=== PATIENT | male | born 1970 | race Two or more races ===

== ENCOUNTER 2017-08-17 13:24 | Emergency (ER) | payer OTHER ==
[2017-08-17 13:36] VITALS: BP 154/99; PULSE 74; TEMP 98.8; BMI 25.9
--- NOTE | 2017-08-17 13:48 | PDOC ---
History of Present Illness <Pina Marr - Last Filed: 08/17/17 18:31> - General History Source: Patient (The patient is a 47 year old male, accompanied by ranjan, with a significant past medical history of schizophrenia, bipolar disorder, substance abuse (opiates and alcohol) who presents to the emergency department via walk-in, complaining of recent mood swings. The patient reports he recently changed his medication approx. 2 weeks ago from suboxone to a new medication (pt. is unsure of the name of the new medication) and reports feeling depressed, lethargic, and a recent loss of appetite. The patient states he recently visited [facility] on TuesdayAugust 12 (4 days ago) for a follow up visit for his new medications. He denies any suicidal or homicidal ideations. Social History: The patient reports 2-3 cigarettes per day , 2 beers per day, 2-3 marijuana joints per day and 1 percocet per day. The patient reports he is engaged to his fiancee and has 3 children and grandchildren. ), Significant Other Exam Limitations: No Limitations <Giancarlo Escamilla - Last Filed: 08/17/17 18:48> - General Chief Complaint: Psychiatric Stated Complaint: I HAVE BEEN CRYING ALL MORNING Time Seen by Provider: 08/17/17 13:32 Past History - Immunization History Immunization Up to Date: Yes Tetanus Status: Unknown - Social History Smoking History: No Smoking Status: Current every day smoker Number of Cigarettes Per Day: 3 Cigars Per Day: 0 Alcohol Use: occasionally Drug Use: marijuana <Pina Marr - Last Filed: 08/17/17 18:31> <Giancarlo Escamilla - Last Filed: 08/17/17 18:48> - Past Medical History Allergies/Adverse Reactions: Allergies Penicillins Adverse Reaction (Verified 08/17/17 13:52) Hives difficulty breathing Home Medications: Ambulatory Orders Amlodipine Besylate [Norvasc -] 10 mg PO DAILY 08/17/17 Aripiprazole [Abilify] 5 mg PO DAILY 08/17/17 Buprenorphine/Naloxone [Suboxone 8Mg/2Mg Sl Film -] 2 each SL TID 08/17/17 Gabapentin [Neurontin] 300 mg PO TID 08/17/17 Lurasidone HCl [Latuda] 20 mg PO DAILY 08/17/17 Oxycodone HCl/Acetaminophen [Percocet 10-325 mg Tablet] 1 each PO DAILY Paroxetine HCl [Paxil] 10 mg PO DAILY 08/17/17 *Review of Systems - Review of Systems Constitutional: Yes: Loss of Appetite. No: Chills, Diaphoresis, Fever, Weakness HEENTM: No: Eye Pain, Blurred Vision, Ear Pain, Difficulty Swallowing Respiratory: No: Cough, Shortness of Breath, Wheezing Cardiac (ROS): No: Chest Pain, Edema, Lightheadedness, Palpitations, Syncope ABD/GI: No: Abdominal Distended, Constipated, Diarrhea, Nausea, Vomiting : No: Burning, Dysuria, Discharge, Frequency, Hematuria Musculoskeletal: No: Back Pain, Joint Pain Integumentary: No: Erythema, Lesions, Rash Neurological: No: Headache, Numbness, Paresthesia Psychiatric: Yes: Depression, Frequent Crying, Mood Swings Endocrine: No: Intolerance to Cold, Intolerance to Heat, Unexplained Weight Gain , Unexplained Weight Loss Hematologic/Lymphatic: No: Anemia, Easy Bleeding, Easy Bruising <Giancarlo Escamilla - Last Filed: 08/17/17 18:48> *Physical Exam - Vital Signs Last Vital Signs Temp Pulse Resp BP Pulse Ox 98.8 F 74 16 154/99 98 08/17/17 13:30 08/17/17 13:30 08/17/17 13:30 08/17/17 13:30 08/17/17 13:30 <Pina Marr - Last Filed: 08/17/17 18:31> - Vital Signs Last Vital Signs Temp Pulse Resp BP Pulse Ox 98.8 F 74 16 154/99 98 08/17/17 13:30 08/17/17 13:30 08/17/17 13:30 08/17/17 13:30 08/17/17 13:30 - Physical Exam General Appearance: Yes: Appropriately Dressed, Other (Tearful ) HEENT: positive: EOMI, JANAE, Normal ENT Inspection, Normal Voice, Symmetrical, TMs Normal, Pharynx Normal Neck: positive: Trachea midline, Supple Respiratory/Chest: positive: Lungs Clear, Normal Breath Sounds. negative: Respiratory Distress, Accessory Muscle Use, Crackles, Rales, Rhonchi, Stridor, Wheezing Cardiovascular: positive: Regular Rhythm, Regular Rate, S1, S2. negative: Edema , JVD, Murmur Gastrointestinal/Abdominal: positive: Normal Bowel Sounds, Soft. negative: Guarding, Rebound, Tenderness Musculoskeletal: positive: Normal Inspection. negative: CVA Tenderness Extremity: positive: Normal Inspection, Normal Range of Motion. negative: Tender Integumentary: positive: Normal Color, Dry, Warm Neurologic: positive: chair caner II-XII NML intact, Fully Oriented, Alert, Normal Mood/ Affect, Normal Response, Motor Strength 5/5 <Giancarlo Escamilla - Last Filed: 08/17/17 18:48> Plan - Laboratory CBC & Chemistry Diagram: 08/17/17 13:52 08/17/17 13:52 <Pina Marr - Last Filed: 08/17/17 18:31> - Progress Note Progress Note: 08/17/17 18:47 Page sent to at 2:50 pm. Case discussed. Page sent to Iftikhar Douglas NP at 2:55 pm. Case discussed. Patient observed hour by hour. Iftikhar Douglas NP arrived to evaluate patient. - Order(s) Order(s): Orders Medication Instructions Recorded Amlodipine Besylate [Norvasc -] 10 mg PO DAILY 08/17/17 Aripiprazole [Abilify] 5 mg PO DAILY 08/17/17 Buprenorphine/Naloxone [Suboxone 2 each SL TID 08/17/17 8Mg/2Mg Sl Film -] Gabapentin [Neurontin] 300 mg PO TID 08/17/17 Lurasidone HCl [Latuda] 20 mg PO DAILY 08/17/17 Oxycodone HCl/Acetaminophen 1 each PO DAILY 08/17/17 [Percocet 10-325 mg Tablet] Paroxetine HCl [Paxil] 10 mg PO DAILY 08/17/17 - Laboratory CBC & Chemistry Diagram: 08/17/17 13:52 08/17/17 13:52 Lab/Micro Results: 08/17/17 08/17/17 13:52 13:52 Sodium 135 L Potassium 4.1 Chloride 105 Carbon Dioxide 24 Anion Gap 6 L BUN 8 Creatinine 0.7 Creat Clearance w eGFR > 60 Random Glucose 112 H Calcium 9.6 Total Bilirubin 0.5 AST 47 H ALT 61 H Alkaline Phosphatase 97 H Total Protein 8.0 Albumin 4.4 Alcohol, Quantitative < 5.0 L 08/17/17 13:52 RBC 5.02 MCV 96.3 H MCHC 34.5 RDW 12.6 MPV 8.3 Neutrophils % 61.9 Lymphocytes % 28.8 Monocytes % 6.5 Eosinophils % 2.2 Basophils % 0.6 <Giancarlo Escamilla - Last Filed: 08/17/17 18:48> *DC/Admit/Observation/Transfer - Discharge Dispostion Admit: No <Pina Marr - Last Filed: 08/17/17 18:31> - Attestations Scribe Attestion: 08/17/17 15:02 Documentation prepared by Giancarlo Escamilla, acting as medical physiologist for Pina Marr MD. <Giancarlo Escamilla - Last Filed: 08/17/17 18:48> Diagnosis at time of Disposition: Bipolar disorder with depression, Major depression, recurrent, chronic - Discharge Dispostion Disposition: HOME Condition at time of disposition: Improved - Patient Instructions Printed Discharge Instructions: Depression, Bipolar Disorder Additional Instructions: Follow up with your psychiatrist. Meanwhile follow the instructions of the local psychiatrist: Paxil 10mg /day go slowly up in few days up to 20 mg - Post Discharge Activity Forms/Work/School Notes: Back to Work
[2017-08-17 14:15] LABS: BASO % 0.6 % (0-2.0); EOS % 2.2 % (0-4.5); HEMATOCRIT 48.4 % (35.4-49); HEMOGLOBIN 16.7 GM/dl (11.7-16.9); LYMPH % 28.8 % (8-40); MCH 33.3 pg (25.7-33.7); MCHC 34.5 g/dl (32.0-35.9); MEAN CELL VOLUME 96.3 fl (80-96); MEAN PLT VOLUME 8.3 fl (7.5-11.1); MONO % 6.5 % (3.8-10.2); NEUT % 61.9 % (42.8-82.8); PLATELET COUNT 275 K/MM3 (134-434); RBC 5.02 M/mm3 (4.00-5.60); RDW 12.6 % (11.9-15.9)
[2017-08-17 14:27] LABS: ALBUMIN 4.4 g/dl (3.5-5.0); ALK PHOS 97 U/L (32-92); ANION GAP 6 (8-16); BILIRUBIN,TOTAL 0.5 mg/dl (0.2-1.0); BLOOD UREA NITROGEN 8 mg/dl (7-18); CALCIUM 9.6 mg/dl (8.4-10.2); CHLORIDE 105 mmol/L (98-107); CO2 24 mmol/L (22-28); GLUCOSE,RANDOM 112 mg/dl (74-106); POTASSIUM 4.1 mmol/L (3.5-5.1); SGOT/AST 47 U/L (10-42); SGPT/ALT 61 U/L (10-40); SODIUM 135 mmol/L (136-145)
[2017-08-17 14:37] LABS: CREATININE 0.7 mg/dl (0.6-1.3)
[2017-08-17 15:23] LABS: COCAINE, UR NEGATIVE ng/ml (CUTOFF=300); METHADONE, UR NEGATIVE ng/ml (CUTOFF=300); PHENCYCLIDINE,URINE NEGATIVE ng/ml (CUTOFF=25); URINE AMPHETAMINES NEGATIVE ng/ml (CUTOFF=500); URINE BARBITURATES NEGATIVE ng/ml (CUTOFF=200); URINE BENZODIAZEPINES NEGATIVE ng/ml (CUTOFF=200)
[2017-08-17 15:24] LABS: OPIATES, URI POSITIVE ng/ml (CUTOFF=300)
--- NOTE | 2017-08-17 17:32 | PN ---
Mental Health Exam - Mental Status Exam Alert and Oriented to: Time, Place, Person Cognitive Function: Good Patient Appearance: Unkempt (not shaven. ) Mood: Apathetic, Anxious, Apprehensive Affect: Mood Congruent Patient Behavior: Crying, Dependent, Cooperative Speech Pattern: Clear, Perseverating (heavily equadorian accented. ) Voice Loudness: Mildly Soft/Quiet Thought Process: Intact, Goal Oriented Thought Disorder: Not Present Hallucinations: Denies (heard a voice in the past but not recently. ) Suicidal Ideation: Denies, No Plan Homicidal Ideation: Denies, No Plan Insight/Judgement: Fair Sleep: Poorly (early childhood director wakening..) Appetite: Fair (no appetite today. ) Muscle strength/Tone: Normal Gait/Station: Normal
--- NOTE | 2017-08-17 17:47 | PN ---
Progress Note (short form) - Note Progress Note: Patient is [place] 47yo male who presents to [facility] at [facility] today in context of having a "nervous breakdown" this am. His girlfriend, Maryuri also accompanied him here today. Patient stopped taking his Antipsychotic mecication and medical meds over the weekend. Client is recently been seen at [facility] where he is managed over many years for depression/ anxiety, with Paxil 40 mg, klonopin which is now tapered off, Neurontin 300mg po tid. [facility], for his polysubstance use, where his meds regieme is changed. he has 1 detox in past, currently managed on out patient with suboxone. He was given latuda instead of abilify which he never took. Client has been on suboxone since starting at clinic, but does not like how he is feeling.Client endorseed smoking marjuanna daily, drinking 2-3 beers to sleep. Client lives with girlfriend and 3 children , 21yo, 18yo and 11 yo. Client is chronic marijuana user, with an arrest for same, facing ICE court case in March 2018, pending deportation. Client noted taking copious notes that help his thoughts, denies current Suicidal ideation, no plan, denies hearing voices, see MSE. Client is working [employer] in [place]. Raised liver enzymes alt 47, ast 61, alk 97. Problem List - Problems (1) Major depression, recurrent, chronic Assessment/Plan: client need to continue Paxil that has been helpful in the past. Currently at 10mg may titrate upwards to 20mg untill follow [facility] at [facility]. [facility]ointment [facility] august 25 2017. Client is extremely anxious since this am, related to poly substance use, recent withdrawal symptoms. Edgy, monitor for withdrawal and Vitals signs, if elevated withrawl and seizure precautions. He stated he cries, poor sleep suffer shakes with anxiety. restart neuronton 300mg po tid. hold latuda, restart tegretol. Code(s): F33.9 - MAJOR DEPRESSIVE DISORDER, RECURRENT, UNSPECIFIED
== END 2017-08-17 18:48 | disposition home or self-care (01) ==
LOC: FER 13:24
DX: F33.8 Other recurrent depressive disorders (principal); F20.9 Schizophrenia, unspecified; F31.9 Bipolar disorder, unspecified; F11.20 Opioid dependence, uncomplicated; F17.210 Nicotine dependence, cigarettes, uncomplicated; F12.10 Cannabis abuse, uncomplicated; Z88.0 Allergy status to penicillin
CPT/HCPCS: 36415; 80053; 80307; 85025; 99283-25

== ENCOUNTER 2018-02-05 11:49 | Emergency (ER) | payer OTHER ==
[2018-02-05 12:06] VITALS: BP 129/78; PULSE 88; TEMP 99.1; BMI 24.8
[2018-02-05] MEDS ORDERED: ERYTHROMYCIN 0.5% OPHTHALMIC OINTMENT 3.5 GM TUBE OD ONE (12:08)
--- NOTE | 2018-02-05 12:09 | PDOC ---
Attending Attestation - Resident Resident Name: HusseinAbelardo ellison - ED Attending Attestation I have performed the following: I have examined & evaluated the patient, The case was reviewed & discussed with the resident, I agree w/resident's findings & plan, Exceptions are as noted - HPI HPI: 47 yo M presents with 2 day history of swelling to R eyelid. +Itching. No drainage. No prior similar symptoms. - Physicial Exam PE: GENERAL: Awake, alert, and fully oriented, in no acute distress HEAD: No signs of trauma EYES: +R upper eyelid erythema, swelling, tenderness. +Small hordeolum PERRLA, EOMI, sclera anicteric, conjunctiva clear ENT: Auricles normal inspection, hearing grossly normal, nares patent, oropharynx clear without exudates. Moist mucosa NECK: Normal ROM, supple, no lymphadenopathy, JVD, or masses NEUROLOGICAL: Cranial nerves II through XII grossly intact. Normal speech, normal gait SKIN: Warm, Dry, normal turgor, no rashes or lesions noted. - Medical Decision Making Exam consistent with hordeolum. Warm compresses, erythromycin ointment.
[2018-02-05] MEDS ORDERED: ERYTHROMYCIN 0.5% OPHTHALMIC OINTMENT 3.5 GM TUBE ONE (12:11)
--- NOTE | 2018-02-05 12:20 | PDOC ---
History of Present Illness - General Chief Complaint: Eye Problem Stated Complaint: RIGHT EYE ITCHING AND SWOLLEN Time Seen by Provider: 02/05/18 12:08 History Source: Patient Exam Limitations: No Limitations - History of Present Illness Initial Comments: 02/05/18 12:15 Patient is a 47M with no significant medical history here today complaining of redness and swelling to his right eye for the past three days. Denies fevers, chills, nausea, vomiting. Endorses eye itching and blurry vision. Denies pain with light and eye movement. Past History - Past Medical History Allergies/Adverse Reactions: Allergies Allergy/AdvReac Type Severity Reaction Status Date / Time buprenorphine [From Suboxone] AdvReac Hives Verified 02/05/18 11:51 Penicillins AdvReac Hives Verified 02/05/18 11:51 Home Medications: Ambulatory Orders Aripiprazole [Abilify] 5 mg PO DAILY 08/17/17 Paroxetine HCl [Paxil] 10 mg PO DAILY 08/17/17 Erythromycin 0.5% Eye Ointment [Erythromycin 0.5% Eye Ointment -] 1 applic OD TID #1 tube 02/05/18 Anemia: No Asthma: No Cancer: No Cardiac Disorders: No CVA: No COPD: No Dementia: No Diabetes: No (boarderline) GI Disorders: No Disorders: No HTN: Yes Hypercholesterolemia: Yes Kidney Stones: No Liver Disease: No Psychiatric Problems: Yes (ANXIETY) Seizures: Yes (last one in , on meds) Thyroid Disease: No - Surgical History Abdominal Surgery: No Appendectomy: No Cardiac Surgery: No Cholecystectomy: No Lung Surgery: No Neurologic Surgery: No Orthopedic Surgery: No - Reproductive History Testicular Surgery: No - Immunization History Immunization Up to Date: Yes - Suicide/Smoking/Psychosocial Hx Smoking Status: No Smoking History: Current every day smoker Have you smoked in the past 12 months: Yes Number of Cigarettes Smoked Daily: 3 If you are a former smoker, when did you quit?: N Cigars Per Day: 0 Information on smoking cessation initiated: Yes 'Breaking Loose' booklet given: 02/05/18 Hx Alcohol Use: Yes (BEER YESTERDAY) Drug/Substance Use Hx: Yes (MARIJUANA OPIATES) Substance Use Type: Alcohol, Marijuana, Opiates Hx Substance Use Treatment: Yes (detox, rehab) Review of Systems - Review of Systems Comments:: 02/05/18 12:16 GENERAL/CONSTITUTIONAL: No fever or chills. No weakness. HEAD, EYES, EARS, NOSE AND THROAT: +blurry vision. No sore throat. CARDIOVASCULAR: No chest pain or shortness of breath RESPIRATORY: No cough, wheezing, or hemoptysis. GASTROINTESTINAL: No nausea, vomiting, diarrhea or constipation. GENITOURINARY: No dysuria, frequency, or change in urination. MUSCULOSKELETAL: No joint or muscle swelling or pain. No neck or back pain. SKIN: No rash NEUROLOGIC: No headache, vertigo, loss of consciousness, or change in strength/ sensation. ENDOCRINE: No increased thirst. No abnormal weight change HEMATOLOGIC/LYMPHATIC: No anemia, easy bleeding, or history of blood clots. ALLERGIC/IMMUNOLOGIC: No hives or skin allergy. *Physical Exam - Vital Signs Last Vital Signs Temp Pulse Resp BP Pulse Ox 99.1 F 88 16 129/78 100 02/05/18 11:50 02/05/18 11:50 02/05/18 11:50 02/05/18 11:50 02/05/18 11:50 - Physical Exam Comments: 02/05/18 12:16 GENERAL: Awake, alert, and fully oriented, in no acute distress HEAD: No signs of trauma, normocephalic, atraumatic EYES: PERRLA, EOMI, sclera anicteric, conjunctiva clear, +hordeolum on right eye , vision normal (20/20 L 20/25 R 20/15 B) ENT: Auricles normal inspection, hearing grossly normal, nares patent, oropharynx clear without exudates. Moist mucosa NECK: Normal ROM, supple, no lymphadenopathy, JVD, or masses LUNGS: No distress, speaks full sentences, clear to auscultation bilaterally HEART: Regular rate and rhythm, normal S1 and S2, no murmurs, rubs or gallops, peripheral pulses normal and equal bilaterally. ABDOMEN: Soft, nontender, normoactive bowel sounds. No guarding, no rebound. No masses EXTREMITIES: Normal inspection, Normal range of motion, no edema. No clubbing or cyanosis. NEUROLOGICAL: Cranial nerves II through XII grossly intact. Normal speech, normal gait, no focal sensorimotor deficits SKIN: Warm, Dry, normal turgor, no rashes or lesions noted. ED Treatment Course - Medications Given in the ED: ED Medications Discontinued Medications Generic Name Dose Route Start Last Admin Trade Name Junior PRN Reason Stop Dose Admin Erythromycin 1 applic 02/05/18 12:08 02/05/18 12:12 Erythromycin 0.5% Eye Ointment OD 02/05/18 12:09 1 applic ONCE ONE Administration Medical Decision Making - Medical Decision Making 02/05/18 12:17 Patient is a 47M with no significant medical history here today with hordeolum to right eye. Vital signs stable and normal. Given erythromycin and instructions for warm compresses. Given return precautions. Discharged home. *DC/Admit/Observation/Transfer Diagnosis at time of Disposition: Stye - Discharge Dispostion Disposition: HOME Condition at time of disposition: Good Decision to Admit order: No - Prescriptions Prescriptions: Erythromycin 0.5% Eye Ointment [Erythromycin 0.5% Eye Ointment -] 1 applic OD TID #1 tube - Referrals - Patient Instructions Printed Discharge Instructions: DI for Hordeolum Additional Instructions: Please return if you have any new, worsening or concerning symptoms. Please use warm compresses regularly on the eye. Please use the antibiotic ointment 3 times a day for the next week. - Post Discharge Activity Forms/Work/School Notes: Back to Work
== END 2018-02-05 12:29 | disposition home or self-care (01) ==
LOC: FER 11:49
DX: H00.021 Hordeolum internum right upper eyelid (principal); F17.210 Nicotine dependence, cigarettes, uncomplicated; I10 Essential (primary) hypertension; E78.00 Pure hypercholesterolemia, unspecified; F41.9 Anxiety disorder, unspecified
CPT/HCPCS: 99282-25

== ENCOUNTER 2021-04-24 10:57 | Emergency (ER) | payer OTHER ==
[2021-04-24 11:23] VITALS: BP 130/80; PULSE 90; TEMP 99.3; BMI 25.5
[2021-04-24] MEDS ORDERED: ACETAMINOPHEN 325 MG TABLET (FP) PO ONE (12:14)
[2021-04-24] MEDS ORDERED: ACETAMINOPHEN 325 MG TABLET (FP) ONE (12:24)
== END 2021-04-24 12:30 | disposition home or self-care (01) ==
LOC: FER 10:57
DX: J02.9 Acute pharyngitis, unspecified (principal)
CPT/HCPCS: 87880; 99283-25

== ENCOUNTER 2022-01-14 12:11 | Emergency (ER) | payer OTHER ==
[2022-01-14 12:20] VITALS: BP 152/97; PULSE 90; TEMP 98.2; BMI 27.3
[2022-01-14] MEDS ORDERED: IBUPROFEN 400 MG TABLET (FP) PO ONE ×2 (13:48→13:54)
[2022-01-14 14:11] LABS: THROAT:GRP A STREP NOT DETECTED (NOTDETECTED)
[2022-01-14] MEDS ORDERED: predniSONE 20 MG TABLET (UD) PO ONE (14:33)
[2022-01-14] MEDS ORDERED: predniSONE 20 MG TABLET (UD) ONE (14:44)
== END 2022-01-14 14:51 | disposition home or self-care (01) ==
LOC: FER 12:11
DX: J02.9 Acute pharyngitis, unspecified (principal)
CPT/HCPCS: 0241U-QW; 87651; 99283-25